=== PATIENT | male | born 1970 | race Caucasian/White ===

== ENCOUNTER 2017-01-16 16:08 | Emergency (ER) | payer BC, OTHER ==
[~2017-01-16] VITALS: Ht 175.3 cm; Wt 86.2 kg
[~2017-01-16 16:08] MED LIST: AMLO1CAP6 PO; FLUT1DIS IH
[2017-01-16 16:28] VITALS: BP_SYST 140
[2017-01-16] MEDS ORDERED: IBUPROFEN 600 MG TABLET PO ONE (16:45)
[2017-01-16] MEDS ORDERED: BACITRACIN 1 GM OINT TP ONE (18:30)
[2017-01-16 18:38] VITALS: BP_SYST 140
== END 2017-01-16 18:38 | disposition home or self-care (01) ==
LOC: SED 16:08
DX: S60.012A Contusion of left thumb without damage to nail, initial encounter (principal); S60.511A Abrasion of right hand, initial encounter; S80.211A Abrasion, right knee, initial encounter; J45.909 Unspecified asthma, uncomplicated; I10 Essential (primary) hypertension; V87.8XXA Person injured in other specified noncollision transport accidents involving motor vehicle (traffic), initial encounter; Y93.55 Activity, bike riding; Y92.488 Other paved roadways as the place of occurrence of the external cause; Y99.8 Other external cause status
CPT/HCPCS: 99284